=== PATIENT | male | born 1965 | race Caucasian/White ===

== ENCOUNTER → 2020-07-18 | Outpatient (CLI) | payer BC ==
[~2020-07-18] MED LIST: ASPIRIN EC81 MG PO; ATORVASTATIN CA40 MG PO; ATORVASTATIN CA80 MG PO; BRILINTA 90 MG90 MG PO; BRILINTA90 MG PO; BUPROPION XL150 MG PO; CARVEDILOL3.125 MG PO; CARVEDILOL6.25 MG PO; ECOTRIN81 MG PO; FLOMAX 0.4 MG0.4 MG PO; HYDROCODON-ACE1 EAC4 PO; IBUPROFEN800 MG PO; NITROGLYCERIN0.4 MG SL; PROTONIX 40 MG40 M1 PO; ZESTRIL5 MG PO; ZOFRAN ODT 4 MG4 MG SL
== END ==
LOC: US 11:00
DX: I73.89 Other specified peripheral vascular diseases (principal); M79.604 Pain in right leg; R60.0 Localized edema
CPT/HCPCS: 93926; 93971

== ENCOUNTER 2020-09-10 22:59 | Emergency (ER) | payer BC ==
[~2020-09-10 22:59] MED LIST changes: -ATORVASTATIN CA80 MG PO; -BRILINTA90 MG PO; -BUPROPION XL150 MG PO; -CARVEDILOL6.25 MG PO; -ECOTRIN81 MG PO; -FLOMAX 0.4 MG0.4 MG PO; -HYDROCODON-ACE1 EAC4 PO; -IBUPROFEN800 MG PO; -PROTONIX 40 MG40 M1 PO; -ZESTRIL5 MG PO; -ZOFRAN ODT 4 MG4 MG SL
[2020-09-11] MEDS ORDERED: IBUPROFEN800 MG PO (01:04)
[2020-09-11] MEDS ORDERED: ZOFRAN ODT 4 MG4 MG SL (01:04)
[2020-09-11] MEDS ORDERED: HYDROCODON-ACE1 EAC4 PO (01:04)
[2020-09-11] MEDS ORDERED: FLOMAX 0.4 MG0.4 MG PO (01:04)
[2020-10-01] MEDS ORDERED: ECOTRIN81 MG PO (07:43)
[2020-10-01] MEDS ORDERED: BRILINTA90 MG PO (07:43)
[2020-10-01] MEDS ORDERED: BUPROPION XL150 MG PO (07:43)
[2020-10-01] MEDS ORDERED: ZESTRIL5 MG PO (07:44)
[2020-10-01] MEDS ORDERED: NITROGLYCERIN0.4 MG SL (07:44)
[2020-10-01] MEDS ORDERED: CARVEDILOL6.25 MG PO (07:44)
[2020-10-01] MEDS ORDERED: ATORVASTATIN CA80 MG PO (07:44)
[2020-10-01] MEDS ORDERED: PROTONIX 40 MG40 M1 PO (09:23)
== END 2020-09-11 01:15 | disposition home or self-care (01) ==
LOC: ER1 22:59
DX: N23 Unspecified renal colic (principal); F17.200 Nicotine dependence, unspecified, uncomplicated; Z88.0 Allergy status to penicillin; Z88.8 Allergy status to other drugs, medicaments and biological substances
CPT/HCPCS: 81001; 87086; 96372; 99283; J1885; J2270

== ENCOUNTER → 2020-10-01 | Day surgery (SDC) | payer BC ==
[~2020-10-01] MED LIST changes: +ATORVASTATIN CA80 MG PO; +BRILINTA90 MG PO; +BUPROPION XL150 MG PO; +CARVEDILOL6.25 MG PO; +ECOTRIN81 MG PO; +FLOMAX 0.4 MG0.4 MG PO; +HYDROCODON-ACE1 EAC4 PO; +IBUPROFEN800 MG PO; +PROTONIX 40 MG40 M1 PO; +ZESTRIL5 MG PO; +ZOFRAN ODT 4 MG4 MG SL
== END | disposition home or self-care (01) ==
LOC: OR 06:38
DX: D12.3 Benign neoplasm of transverse colon (principal); K21.00 Gastro-esophageal reflux disease with esophagitis, without bleeding; K44.9 Diaphragmatic hernia without obstruction or gangrene; K29.80 Duodenitis without bleeding; K64.4 Residual hemorrhoidal skin tags; K26.9 Duodenal ulcer, unspecified as acute or chronic, without hemorrhage or perforation; K25.9 Gastric ulcer, unspecified as acute or chronic, without hemorrhage or perforation; K64.0 First degree hemorrhoids; K22.10 Ulcer of esophagus without bleeding; K29.50 Unspecified chronic gastritis without bleeding; I10 Essential (primary) hypertension; E78.00 Pure hypercholesterolemia, unspecified; I25.2 Old myocardial infarction; Z88.5 Allergy status to narcotic agent; Z88.0 Allergy status to penicillin; Z79.82 Long term (current) use of aspirin; Z95.5 Presence of coronary angioplasty implant and graft; I25.10 Atherosclerotic heart disease of native coronary artery without angina pectoris; E78.5 Hyperlipidemia, unspecified; J44.9 Chronic obstructive pulmonary disease, unspecified; F17.210 Nicotine dependence, cigarettes, uncomplicated; M54.9 Dorsalgia, unspecified; G89.29 Other chronic pain; B96.81 Helicobacter pylori [H. pylori] as the cause of diseases classified elsewhere
CPT/HCPCS: J2704; J7040

== ENCOUNTER → 2021-04-21 | Outpatient (CLI) | payer BC ==
[~2021-04-21] MED LIST changes: +ZETIA10 MG PO
== END ==
LOC: KOH-I 04-11 13:00
DX: F17.210 Nicotine dependence, cigarettes, uncomplicated (principal); R91.8 Other nonspecific abnormal finding of lung field
CPT/HCPCS: 71271

== ENCOUNTER → 2021-04-22 | Day surgery (SDC) | payer BC | END | disposition home or self-care (01) | LOC: OR 07:04 | DX: K31.9 Disease of stomach and duodenum, unspecified (principal); K22.10 Ulcer of esophagus without bleeding; K22.89 Other specified disease of esophagus; K21.00 Gastro-esophageal reflux disease with esophagitis, without bleeding; K22.2 Esophageal obstruction; K44.9 Diaphragmatic hernia without obstruction or gangrene; K29.60 Other gastritis without bleeding; K31.89 Other diseases of stomach and duodenum; I10 Essential (primary) hypertension; E78.00 Pure hypercholesterolemia, unspecified; Z20.822 Contact with and (suspected) exposure to COVID-19; Z72.0 Tobacco use; Z88.5 Allergy status to narcotic agent; Z88.0 Allergy status to penicillin; Z79.82 Long term (current) use of aspirin; Z95.5 Presence of coronary angioplasty implant and graft | CPT/HCPCS: J2001; J2704; J7040 ==